=== PATIENT | male | born 1970 | race Caucasian/White ===

== ENCOUNTER 2017-02-27 09:40 | Emergency (ER) | payer OTHER ==
[2017-02-27 12:48] VITALS: BP 138/90
== END 2017-02-27 12:48 | disposition home or self-care (01) ==
LOC: ED 09:40
DX: L02.811 Cutaneous abscess of head [any part, except face] (principal); Z88.0 Allergy status to penicillin
CPT/HCPCS: J2001

== ENCOUNTER 2017-04-05 17:04 | Emergency (ER) | payer OTHER ==
[2017-04-05 20:06] VITALS: BP 145/88
== END 2017-04-05 20:06 | disposition home or self-care (01) ==
LOC: ED 17:04
DX: H66.41 Suppurative otitis media, unspecified, right ear (principal)
CPT/HCPCS: J2001; J3490

== ENCOUNTER 2017-04-08 08:37 | Emergency (ER) | payer OTHER ==
[~2017-04-08] VITALS: Ht 177.8 cm; Wt 144.6 kg
[2017-04-08 08:52] VITALS: BP 142/91
== END 2017-04-08 09:31 | disposition home or self-care (01) ==
LOC: ED 08:37
DX: Z48.01 Encounter for change or removal of surgical wound dressing (principal); Z88.0 Allergy status to penicillin

== ENCOUNTER 2017-07-31 09:32 | Emergency (ER) | payer OTHER ==
[~2017-07-31] VITALS: Ht 177.8 cm; Wt 117.0 kg
[2017-07-31 09:37] VITALS: Ht 177.8 cm; Wt 117.0 kg
[2017-07-31 13:30] VITALS: BP 118/72
== END 2017-07-31 14:00 | disposition home or self-care (01) ==
LOC: ED 09:32
DX: M79.604 Pain in right leg (principal)
CPT/HCPCS: J0690

== ENCOUNTER 2017-07-31 15:10 | Emergency (ER) | payer OTHER ==
[~2017-07-31] VITALS: Ht 177.8 cm; Wt 117.0 kg
[2017-07-31 15:38] VITALS: Ht 177.8 cm; Wt 117.0 kg
[2017-07-31 21:29] VITALS: BP 134/97
== END 2017-07-31 21:30 | disposition home or self-care (01) ==
LOC: ED 15:10
DX: T78.40XA Allergy, unspecified, initial encounter (principal); T36.1X5A Adverse effect of cephalosporins and other beta-lactam antibiotics, initial encounter; Z88.0 Allergy status to penicillin; Y92.9 Unspecified place or not applicable
CPT/HCPCS: J7512; Q0163

== ENCOUNTER 2017-08-05 10:31 | Emergency (ER) | payer OTHER ==
[~2017-08-05] VITALS: Ht 177.8 cm; Wt 117.0 kg
[2017-08-05 10:39] VITALS: Ht 177.8 cm; Wt 117.0 kg
[2017-08-05 12:53] VITALS: BP 138/91
== END 2017-08-05 12:53 | disposition home or self-care (01) ==
LOC: ED 10:31
DX: L02.415 Cutaneous abscess of right lower limb (principal)
CPT/HCPCS: J1885; J2001

== ENCOUNTER 2017-08-07 10:48 | Emergency (ER) | payer OTHER ==
[~2017-08-07] VITALS: Ht 180.3 cm; Wt 107.0 kg
[2017-08-07 11:08] VITALS: BP 133/77; Ht 180.3 cm; Wt 107.0 kg
== END 2017-08-07 12:17 | disposition home or self-care (01) ==
LOC: ED 10:48
DX: L02.416 Cutaneous abscess of left lower limb (principal); Z88.0 Allergy status to penicillin
CPT/HCPCS: J2001

== ENCOUNTER 2018-03-25 14:03 | Emergency (ER) | payer OTHER ==
[~2018-03-25] VITALS: Ht 177.8 cm; Wt 117.0 kg
[2018-03-25 14:18] VITALS: BP 137/102; Ht 177.8 cm; Wt 117.0 kg
== END 2018-03-25 17:47 | disposition home or self-care (01) ==
LOC: ED 14:03
DX: L02.31 Cutaneous abscess of buttock (principal); Z88.0 Allergy status to penicillin; Z88.1 Allergy status to other antibiotic agents
CPT/HCPCS: J2001

== ENCOUNTER 2018-03-27 09:12 | Emergency (ER) | payer OTHER ==
[~2018-03-27] VITALS: Ht 177.8 cm; Wt 117.0 kg
[2018-03-27 09:16] VITALS: Ht 177.8 cm; Wt 117.0 kg
[2018-03-27 10:25] VITALS: BP 160/88
== END 2018-03-27 10:25 | disposition home or self-care (01) ==
LOC: ED 09:12
DX: Z48.01 Encounter for change or removal of surgical wound dressing (principal); Z88.0 Allergy status to penicillin; Z88.1 Allergy status to other antibiotic agents

== ENCOUNTER 2018-08-23 11:01 | Emergency (ER) | payer OTHER ==
[~2018-08-23] VITALS: Ht 177.8 cm; Wt 115.7 kg
[2018-08-23 11:35] VITALS: Ht 177.8 cm; Wt 115.7 kg
[2018-08-23 15:21] VITALS: BP 139/90
== END 2018-08-23 15:21 | disposition home or self-care (01) ==
LOC: ED 11:01
DX: J40 Bronchitis, not specified as acute or chronic (principal); Z88.0 Allergy status to penicillin; Z88.1 Allergy status to other antibiotic agents
CPT/HCPCS: J1885; J7512

== ENCOUNTER 2019-02-27 08:17 | Inpatient (IN) | payer OTHER ==
[~2019-02-27] VITALS: Ht 177.8 cm; Wt 114.0 kg
[2019-02-27 08:26] VITALS: Ht 177.8 cm; Wt 114.0 kg
[2019-02-27 09:25] LABS: PLATELET COUNT 172 x10^3mcL (130-400); RED CELL DISTRIBUTION WIDTH 12.6 % (11.5-14.5)
[2019-02-27 09:40] LABS: BASOPHIL % 0 % (0-2)
--- NOTE | 2019-02-27 09:48 | NUR ---
PT WAS ON BED CO PAIN ON RIGHT FOOT 2ND TO STEPING ON NAIL 3 DAYS AGO. SWELLING AND REDNESS. C/O PAIN 8-05/12. VS STABLE.
[2019-02-27 10:23] LABS: CALCIUM 9.6 mg/dL (8.5-10.1); CARBON DIOXIDE 19.5 mmol/L (21-32); CHLORIDE SERUM 102 mmol/L (98-107); CREATININE SERUM 0.9 mg/dL (0.7-1.3); GFR1 > 60 mL/min; GLUCOSE SERUM 345 mg/dL (74-106); POTASSIUM SERUM 3.9 mmol/L (3.5-5.1); SODIUM SERUM 137 mmol/L (136-145)
[2019-02-27 10:28] LABS: ALBUMIN 3.5 g/dL (3.4-5.0); ALKALINE PHOSPHATASE 67 U/L (46-116); ALT/SGPT 27 U/L (16-63); AST/SGOT 14 U/L (15-37); BILIRUBIN TOTAL 0.94 mg/dL (0.20-1.00); TOTAL PROTEIN, SERUM 7.5 g/dL (6.4-8.2)
--- NOTE | 2019-02-27 10:52 | NUR ---
PT WAS SEEN BY ED MD. ANTIBIOTICS IVPB STARTED PER MD ORDER.
[2019-02-27 11:08] LABS: ERYTHROCYTE SED RATE 68 mm/hr (0-15)
[2019-02-27] MEDS ORDERED: GLIPIZIDE5 M2 PO (11:38)
[2019-02-27] MEDS ORDERED: LIPITOR20 MG PO (11:38)
[2019-02-27] MEDS ORDERED: METFORMIN HCL1000 MG PO (11:39)
[2019-02-27] MEDS ORDERED: ZES10 PO (11:40)
[2019-02-27] MEDS ORDERED: EPZICOM1 TAB (11:40)
--- NOTE | 2019-02-27 11:54 | NUR ---
PT WAS ADMITED TO M/S. ROOM 257A. REPORT WAS CALLED AND GIVEN TO MYLES MONGE.
[2019-02-27 12:51] VITALS: BP 117/69
--- NOTE | 2019-02-27 12:51 | NUR ---
RECEIVED FROM ER VIA FIONA, SEEN AAOX4 WALKING FROM THE BATHROOM. NO RESP DISTRESS NOTED. BREATHING E/U ON ROOM AIR. STATED HAVING PAIN TO RIGHT FOOT SHOOTING PAIN 10/10 ON PAIN SCALE. NOTED RIGHT FOOT SWOLLEN WITH ERYTHEMA, PHOTO TAKEN. LEVAQUIN GIVEN IN ER. VANCOMYCIN ONGOING AT THIS TIME. IV SITE TO LFA INTACT AND FLUSHED WELL. ORIENTING TO ROOM ENVIRONMENT. CALL LIGHT INSTRUCTED AND PLACED WITHIN EASY REACH. SIDERAILS UP X2.
--- NOTE | 2019-02-27 13:07 | NUR ---
STATED HAVING SHOOTING PAIN TO RIGHT FOOT 10/10 ON PAIN SCALE, TORADOL 15MG IVP GIVEN.
--- NOTE | 2019-02-27 14:02 | NUR ---
STATED RIGHT FOOT PAIN IS RELEIF AFTER TORADOL GIVEN. WILL CONTINUE TO MONITOR.
[2019-02-27 16:53] VITALS: BP 133/76
--- NOTE | 2019-02-27 17:40 | NUR ---
NO ANY DISTRESS THROUGHOUT SHIFT. ALL DUE MEDS GIVEN. TORADOL GIVEN X1 FOR RIGHT FOOT PAIN WITH GOOD RELIEF. IV TO LFA FLUSHED PATENT. HAD GOOD APPETITE. BLLV=[id number], RISS 9 UNITS SQ GIVEN. BRP.
--- NOTE | 2019-02-27 20:01 | NUR ---
RECIEVED PT IN NO ACUTE DISTRESS. AOX4. MED SURG. BREATHING E/U ON RA. SWELLING/REDNESS NOTED TO R FOOT, PAYROLL PROCESSOR. C/O R FOOT PAIN 03/12, WILL MEDICATE PER EMAR. SL TO [facility], PATENT. NPO AT MIDNIGHT FOR POSSIBLE PROCEDURE TOMORROW. BED IN LOWEST POSITION, 2 SIDE RAILS UP, CALL LIGHT N REACH. INSTRUCTED TO CALL FOR ASSISTANCE.
[2019-02-27 21:09] VITALS: BP 115/63
--- NOTE | 2019-02-27 21:25 | NUR ---
PT C/O 03/12 R FOOT PAIN AFTER TORADOL. NO OTHER AVAILABLE PAIN MEDICATION. DR. MCMULLEN MADE AWARE.
--- NOTE | 2019-02-27 23:20 | NUR ---
ENDORSED TO AUGUST MONGE FOR CONTINUATION OF CARE.
--- NOTE | 2019-02-28 00:18 | NUR ---
RECEIVED PT FROM EUGENIO MONGE. PT CURRENTLY RESTING IN BED, NO ACUTE DISTRESS. WILL CONTINUE TO MONITOR.
--- NOTE | 2019-02-28 06:00 | NUR ---
PT SLEPT PERIODICALLY THROUGHOUT NIGHT, C/O FOOT PAIN 03/12. MEDICATED PER EMAR. BLOOD GLUCOSE 177, NO COVERAGE PER DR MCMULLEN. ALL NEEDS MET AND ATTENDED TO. NO SIGNIFICANT CHANGES. IV PATENT AND INTACT. BED IN LOWEST POSITION, SIDE RAILS UP X2, CALL LIGHT WITHIN REACH. WILL ENDORSE CARE TO ONCOMING NURSE
[2019-02-28 06:11] VITALS: BP 129/45
[2019-02-28 07:36] LABS: microscopic required? YES; urine erythrocyte TRACE (NEGATIVE)
--- NOTE | 2019-02-28 07:43 | NUR ---
PATIENT A/OX4, ABLE TO MAKE NEEDS KNOWN AND FOLLOW COMMANDS. DENIES HEADAHCE OR CHEST PAIN. LUNGS CTA, NO RESP DISTRESS NOTED ON RA. BREATHING E/U. PERIPHERAL PULSES PALPABLE, RT FOOT NOTED WITH SWELLING/REDNESS, NO DRAINAGE, C/O PAIN 9/10 THROBBING, WILL MEDICATE. BOWEL SOUNDS ACTIVE. DENIES N/V. REPORTS INCREASED PAIN UPON AMBULATING. IV ACCESS TO LFA 20G RUNNING D51/2NS AT 100ML/HR, INFUSING WELL. SITE WNL. CALL LIGHT WITHIN REACH.
[2019-02-28 08:55] VITALS: BP 124/56
--- NOTE | 2019-02-28 08:55 | NUR ---
NORCO GIVEN FOR C/O RT FOOT PAIN 05/12. WILL CONT TO MONITOR.
[2019-02-28 09:15] VITALS: BP 137/73
--- NOTE | 2019-02-28 09:45 | NUR ---
PATIENT SLEEPING AT THIS TIME, BREATHING E/U, NO ACUTE DISTRESS AT THIS TIME. NORCO EFFECTIVE FOR PAIN.
--- NOTE | 2019-02-28 12:25 | NUR ---
PATIENT C/O PAIN COMING BACK TO RT FOOT AND REQUESTING FOR PAIN MED. PER OR, PROCEDURE FOR I&D RESCHEDULED FOR 1400 AND PATIENT MAY BE PICKED UP AT 1330. CARDROOM WORKER CHRIS PAGED AND NOTIFIED OF PAIN WITH NO OTHER DUE PAIN MEDS AVAILABLE TO GIVE AT THIS TIME. TELEPHONE READBACK ORDER RECEIVED FOR MORPHINE 1MG Q4H PRN. GIVEN. WILL CONT TO MONITOR.
--- NOTE | 2019-02-28 14:24 | NUR ---
DR BETANCUR AT BEDSIDE, PER GAS PLANT TECHNICIAN PATIENT WILL HAVE BEDSIDE PROCEDURE INSTEAD. CONSENT OBTAINED FOR ASPIRATION VS INCISION AND DRAINAGE TO RIGHT FOOT. PROCEDURE INITIATED. BEFORE AND AFTER PICTURES OF WOUND TO BE CHARTED.
--- NOTE | 2019-02-28 16:50 | NUR ---
MORPHINE GIVEN FOR C/O PAIN TO RT FOOT. RT FOOT ELEVATED ON PILLOWS. VISITORS AT BEDSIDE.
[2019-02-28 18:01] VITALS: BP 146/85
--- NOTE | 2019-02-28 19:28 | NUR ---
SHIFT REASSESSMENT DONE.PATIENT ALERT AND ORIENTED.BREATHING EASY.GEN WEAKNESSNWB R FOOT.REDNESS/SWELLING DRESSING INTACT.VOIDING PER URINAL.CALL LIGHT IN REACH.
[2019-02-28 20:45] VITALS: BP 119/53
--- NOTE | 2019-02-28 21:00 | NUR ---
R FOOT REDNESS SWELLING WITH DRESSING DRY AND INTACT,ELEVATED/PILLOW,NWB R FOOT.CALL LIGHT IN REACH.
--- NOTE | 2019-02-28 21:13 | NUR ---
PATIENT GIVEN MSO4 1 MG IVP.DENNIS PATENT.
--- NOTE | 2019-03-01 04:51 | NUR ---
SLEEPING COMFORTABLY.CALL LIGHT IN REACH.
[2019-03-01 05:44] VITALS: BP 130/55
--- NOTE | 2019-03-01 05:59 | NUR ---
PATIENT I AND O MEASURED.NO MAJOR CHANGES THIS SHIFT.
[2019-03-01 06:58] LABS: CALCIUM 9.2 mg/dL (8.5-10.1); CHLORIDE SERUM 100 mmol/L (98-107); CREATININE SERUM 0.7 mg/dL (0.7-1.3); GFR1 > 60 mL/min; GLUCOSE SERUM 212 mg/dL (74-106); POTASSIUM SERUM 4.5 mmol/L (3.5-5.1); SODIUM SERUM 136 mmol/L (136-145)
[2019-03-01 07:05] LABS: BASOPHIL % 0.3 % (0-2); PLATELET COUNT 189 x10^3mcL (130-400); RED CELL DISTRIBUTION WIDTH 12.4 % (11.5-14.5)
--- NOTE | 2019-03-01 07:25 | NUR ---
RECIEVED PT RESTING IN BED WITH NO C/O DISTRESS OR SOB. A/O X4 NO ANDREW OR DIZZINESS. LUNGS CTAB. IV NOT INTACT AND HAD TO START NE [place]. OLD IV REMOEVED WITH CATHETER INTACT. NEW IV IN LEFT HAND 22 GUAGE. NO REDNESS OR INFLAMMATION NOTED. SAFETY PRECAUTIONS IN PLACE, CALL LIGHT WITHIN REACH, WILL MONITOR.
[2019-03-01 08:22] VITALS: BP 151/85
[2019-03-01 08:43] LABS: ALKALINE PHOSPHATASE 56 U/L (46-116); ALT/SGPT 19 U/L (16-63); AST/SGOT 9 U/L (15-37); BILIRUBIN TOTAL 0.47 mg/dL (0.20-1.00); CALCIUM 8.9 mg/dL (8.5-10.1); CARBON DIOXIDE 23.9 mmol/L (21-32); CHLORIDE SERUM 99 mmol/L (98-107); CREATININE SERUM 0.8 mg/dL (0.7-1.3); GFR1 > 60 mL/min; GLUCOSE SERUM 221 mg/dL (74-106); SODIUM SERUM 134 mmol/L (136-145); TOTAL PROTEIN, SERUM 6.9 g/dL (6.4-8.2)
[2019-03-01 08:46] LABS: ALBUMIN 2.7 g/dL (3.4-5.0)
--- NOTE | 2019-03-01 10:39 | NUR ---
PT C/O 03/12 RIGHT FOOT PAIN, MEDICATED WITH NORCO PER EMAR, WILL REASSESS.
[2019-03-01] MEDS ORDERED: BACTRIM DS1 TAB PO (12:18)
[2019-03-01] MEDS ORDERED: LEVOFLOXACIN500 M1 PO (12:19)
--- NOTE | 2019-03-01 14:09 | NUR ---
PT C/O 8/10 FOOT PAIN, MEDICATED WITH MORPHINE PER EMAR, WILL REASSESS.
[2019-03-01 16:52] VITALS: BP 135/71
--- NOTE | 2019-03-01 19:13 | NUR ---
I/D FINISHED BY DR ORTIZ AND EATING DISORDER PSYCHOLOGIST. BEFORE AND AFTER PICTURES TAKEN. ONSENT SIGNED BY PT AND IN CHART. PT VERBALIZED UNDERSTAND OF PROCEDURE AND CONCENT.
--- NOTE | 2019-03-01 19:30 | NUR ---
PT STABLE AT THIS TIME WITH NO C/O PAIN, DISTRESS, OR SOB. TOLERATED ALL CARES WELL.IV INTACT AND PATENT WITH NO REDNESS OR INFLAMMATION NOTED. SAFETY PRECAUTIONS IN PLACE, CALL LIGHT WITHIN REACH, WILL ENDORSE CARE TO NIGHT NURSE.
--- NOTE | 2019-03-01 19:46 | NUR ---
ON INITIAL NURSING ROUNDS SAYS HE CALLED 1/2 AN HOUR AGO FOR MSO4,REMINDED I WILL GIVE IT NOW,FIRST THING.
--- NOTE | 2019-03-01 19:49 | NUR ---
SHIFT REASSESSMENT DONE.PATIENT JUST GIVEN PAIN SHOT,AM NURSE SAY HE IS GOING SURGERY IN AM,WILL FOLLOW UP ORDERS.NO CONSENT YET.HEPLOCK INTACT L HAND.FLUSHES EASY.MED SURG PATIENT.CALL LIGHT IN REACH.
--- NOTE | 2019-03-01 21:36 | NUR ---
PAIN MED NORCO GIVEN,HAD NO COMPLETE RELIEF FROM MSO4.CALL LIGHT IN [facility].
[2019-03-01 21:41] VITALS: BP 120/55
--- NOTE | 2019-03-02 01:48 | NUR ---
HAD GIVEN TORADOL EARLIER.QUIET ENVIRONMENT MAINTAINED,USES URINAL,BUT DID HAVE ACCIDENT/WET THE BED.NEW GOWN.
--- NOTE | 2019-03-02 02:31 | NUR ---
NPO AFTER MIDNIGHT.
[2019-03-02 06:13] VITALS: BP 145/62
--- NOTE | 2019-03-02 06:46 | NUR ---
BLANK CONSENT IN FRONT OF CHART,PREOP CHECKLIST INITIATED.
--- NOTE | 2019-03-02 07:00 | NUR ---
RECEIVED PT FROM FACILITY MAINTENANCE SUPERVISOR NURSE. PT RESTING IN BED, AOX4, RESP E/U ON RA. PT DENIES PAIN AT THIS TIME, NO ACUTE DISTRESS NOTED. DRESSING IN PLACE TO R FOOT, CDI. SALINE LOCKED TO L HAND W/ NO ERYTHEMA OR EDEMA, BDE IN LOWEST POSITION AND CALL LIGHT WITHIN REACH. WILL CONTINUE TO MONITOR.
--- NOTE | 2019-03-02 07:18 | NUR ---
[facility] INSTRUCTOR INFORMED ABOUT I&D AND DEBRIDEMENT ORDER FOR THIS PATIENT UNDER WREN GRP, NO TIME NOR DATE GIVEN.PATIENT WAS NPO DURING THE NIGHT.
--- NOTE | 2019-03-02 07:20 | NUR ---
REPORT TO Sveta CARMEN
[2019-03-02 07:45] VITALS: BP 127/72
--- NOTE | 2019-03-02 08:36 | NUR ---
PT BROUGHT DOWN TO OR FOR I&D TO R FOOT AT THIS TIME.
--- NOTE | 2019-03-02 12:15 | NUR ---
PT RESTING IN BED, AOX4 BUT MILDLY DROWSY S/P I&D, RESP E/U ON RA. DENIES PAIN AT THIS TIME. DRESSING TO R FOOT CDI, ELEVATED ON PILLOW. BED IN LOWEST POSITION AND CALL LIGHT WITHIN REACH. WILL CONTIUE TO MONITOR.
[2019-03-02 16:40] VITALS: BP 147/87
--- NOTE | 2019-03-02 17:59 | NUR ---
PT RESTING IN BED, AOX4, RESP E/U ON RA. C/O OF PAIN TO R FOOT RATED 7/10. MEDICATED ORDERED PER EMAR. R FOOT ELEVATED ON PILLOW, DRESSING CDI S/P I&D. SALINE LOCKED TO R HAND W/ NO ERYTHEMA OR EDEMA. BED IN LOWEST POSITION AND CALL LIGHT WITHIN REACH. CONTACT PRECAUTIONS MAINTAINED. WILL ENDORSE TO ONCOMING NURSE.
--- NOTE | 2019-03-02 19:41 | NUR ---
RECEIVED PT FROM PREVIOUS SHIFT. SCAR. ADÁN. S/P 03/01 I&D, RLE WRAPPED IN GAUZE DRESSING, SMALL AMOUNT OF SANGUINEOUS DRAINAGE NOTED, OTHERWISE INTACT. RLE ELEVATED ON PILLOWS, EDUCATED PT ON IMPORTANCE OF KEEPING EXTREMITY ELEVATED. REPORTS 7/10 RLE PAIN, "PRESSURE" LIKE, WILL MEDICATE PER EMAR. PT ABLE TO WIGGLE TOES AND FEEL SENSATION TO RLE. DENIES N/V. DENIES SOB. NO C/O HEADACHE/DIZZINESS. IV SITE TO L HAND CDI, SALINE-LOCKED. CALL LIGHT WITHIN REACH. SAFETY MEASURES IN PLACE. WILL CONTINUE TO MONITOR.
--- NOTE | 2019-03-02 19:41 | NUR ---
MEDICATED PER EMAR WITH NORCO PO, FOR RLE 7/10 PAIN.
[2019-03-02 21:04] VITALS: BP 139/68
--- NOTE | 2019-03-02 21:46 | NUR ---
PT C/O 03/12 ACHING PAIN TO RLE, PT STATES NORCO "ONLY HELPED A LITTLE". MEDICATED PER EMAR.
--- NOTE | 2019-03-03 00:56 | NUR ---
PT AWAKE, WATCHING TV. C/O 01/10 ACHING RLE PAIN, MEDICATED PER EMAR. NO S/S ACUTE DISTRESS. BREATHING E/U. CALL LIGHT WITHIN REACH. SAFETY MEASURES IN PLACE. WILL CONTINUE TO MONITOR.
[2019-03-03 06:05] VITALS: BP 144/76
--- NOTE | 2019-03-03 07:00 | NUR ---
RECEIVED PT FROM SCOOPER NURSE. PT RESTING IN BED, AOX4, RESP E/U ON RA. C/O MILD PAIN TO R FOOT RATED 3/10, TOLERABLE TO PT, NO REQUEST FOR PAIN MEDS AT THIS TIME. COMFORT MEASURES IMPLEMENTED, R FOOT ELEVATED ON PILLOWS, DRESSING CDI S/P I & D. SALINE LOCKED TO L HAND W/ NO ERYTHEMA OR EDEMA. CONTACT PRECAUTIONS IN PLACE. BED IN LOWEST POSITION AND CALL LIGHT WITHIN REACH. WILL CONTINUE TO MONITOR.
[2019-03-03 08:14] LABS: BASOPHIL % 0.3 % (0-2); PLATELET COUNT 249 x10^3mcL (130-400); RED CELL DISTRIBUTION WIDTH 12.1 % (11.5-14.5)
[2019-03-03 08:28] VITALS: BP 140/75
[2019-03-03 08:35] LABS: CALCIUM 9.4 mg/dL (8.5-10.1); CARBON DIOXIDE 27.8 mmol/L (21-32); CHLORIDE SERUM 101 mmol/L (98-107); CREATININE SERUM 0.7 mg/dL (0.7-1.3); GFR1 > 60 mL/min; GLUCOSE SERUM 189 mg/dL (74-106); POTASSIUM SERUM 3.8 mmol/L (3.5-5.1); SODIUM SERUM 137 mmol/L (136-145)
--- NOTE | 2019-03-03 12:40 | NUR ---
PT IN BED HAVING LUNCH, AOX4, RESP E/U ON RA. DENIES PAIN TO R FOOT AT THIS TIME, DRESSING CDI, R FOOT ELEVATED ON PILLOW. BED IN LOWEST POSITION AND CALL LIGHT WITHIN REACH. WILL CONTINUE TO MONITOR.
[2019-03-03 14:46] VITALS: BP 140/75
[2019-03-03 16:25] VITALS: BP 141/75
--- NOTE | 2019-03-03 18:34 | NUR ---
PT DISCHARGED. REVIEWED PT VISIT SUMMARY, EDUCATIONAL PACKET AND FOLLOW UP INSTRUCTIONS W/ PT. PT AOX4, RESP E/U, VS STABLE, PAIN TO R FOOT TOLERABLE AT THIS TIME, DRESSING CDI. IV TO L HAND REMOVED, CATH INTACT, GAUZE DRESSING APPLIED. PT BROUGHT TO LOBBY VIA WHEELCHAIR W/ NO ACUTE INCIDENCE, ESCORTED BY SISTER AND SALEEM CARMEN.
== END 2019-03-03 18:33 | disposition home or self-care (01) | DRG 580 ==
LOC: ED 08:17 → MU 11:28
PROVIDERS: Emergency Medicine; Internal Medicine; Podiatrist Foot & Ankle Surgery; ADMIT General Practice
PROC: 0Y9M3ZZ Drainage of Right Foot, Percutaneous Approach (ICD-10-PCS; principal; 2019-02-28)
PROC: 0JDQ0ZZ Extraction of Right Foot Subcutaneous Tissue and Fascia, Open Approach (ICD-10-PCS; 2019-03-02)
PROC: 0Y9M0ZZ Drainage of Right Foot, Open Approach (ICD-10-PCS; 2019-03-02)
DX: S91.331A Puncture wound without foreign body, right foot, initial encounter (principal); L03.115 Cellulitis of right lower limb; L02.611 Cutaneous abscess of right foot; E11.65 Type 2 diabetes mellitus with hyperglycemia; L08.9 Local infection of the skin and subcutaneous tissue, unspecified; I10 Essential (primary) hypertension; E78.5 Hyperlipidemia, unspecified; E66.9 Obesity, unspecified; W45.0XXA Nail entering through skin, initial encounter; Z68.38 Body mass index [BMI] 38.0-38.9, adult; Z87.891 Personal history of nicotine dependence; Z79.84 Long term (current) use of oral hypoglycemic drugs; Y93.89 Activity, other specified; Y92.89 Other specified places as the place of occurrence of the external cause; Z88.0 Allergy status to penicillin; Z88.8 Allergy status to other drugs, medicaments and biological substances; Z87.01 Personal history of pneumonia (recurrent)
CPT/HCPCS: 82962; G0378; J1170; J1815; J1885; J1956; J2270; J2405; J2704; J3010; J3370; J3490; J7030; Q0092

== ENCOUNTER 2019-03-09 21:22 | Emergency (ER) | payer OTHER ==
[~2019-03-09] VITALS: Ht 177.8 cm; Wt 119.3 kg
[~2019-03-09 21:22] MED LIST: BACTRIM DS1 TAB PO; EPZICOM1 TAB; GLIPIZIDE5 M2 PO; LEVOFLOXACIN500 M1 PO; LIPITOR20 MG PO; METFORMIN HCL1000 MG PO; ZES10 PO
[2019-03-09 21:40] VITALS: Ht 177.8 cm; Wt 119.3 kg
[2019-03-10 00:35] LABS: BASOPHIL % 0.1 % (0-2); PLATELET COUNT 369 x10^3mcL (130-400); RED CELL DISTRIBUTION WIDTH 12.6 % (11.5-14.5)
[2019-03-10 00:45] LABS: CALCIUM 9.9 mg/dL (8.5-10.1); CARBON DIOXIDE 23.3 mmol/L (21-32); CHLORIDE SERUM 92 mmol/L (98-107); GFR1 > 60 mL/min; GLUCOSE SERUM 322 mg/dL (74-106); POTASSIUM SERUM 5.2 mmol/L (3.5-5.1); SODIUM SERUM 131 mmol/L (136-145)
[2019-03-10 00:51] LABS: ALBUMIN 3.5 g/dL (3.4-5.0); ALKALINE PHOSPHATASE 68 U/L (46-116); ALT/SGPT 26 U/L (16-63); AST/SGOT 14 U/L (15-37); BILIRUBIN TOTAL 0.4 mg/dL (0.20-1.00); LIPASE 89 IU/L (73-393); TOTAL PROTEIN, SERUM 8.2 g/dL (6.4-8.2)
[2019-03-10 02:54] VITALS: BP 132/78
[2019-03-11] MEDS ORDERED: LOT1C TOP (17:44)
== END 2019-03-10 02:54 | disposition home or self-care (01) ==
LOC: ED 21:22
PROVIDERS: Emergency Medicine
DX: R11.2 Nausea with vomiting, unspecified (principal); E11.9 Type 2 diabetes mellitus without complications; R53.1 Weakness; Z88.0 Allergy status to penicillin; Z88.1 Allergy status to other antibiotic agents; Z98.890 Other specified postprocedural states
CPT/HCPCS: 82962; J2405; J7030

== ENCOUNTER 2019-03-11 14:13 | Inpatient (IN) | payer OTHER ==
[~2019-03-11] VITALS: Ht 172.7 cm; Wt 107.1 kg
[2019-03-11 14:27] VITALS: Ht 172.7 cm; Wt 107.1 kg
--- NOTE | 2019-03-11 14:40 | NUR ---
PER PT HE HAD SURGERY HERE AT [facility] LAST WEEK. PT STS THAT HE CAME A FEW DAYS AGO FOR "EXTREME NAUSEA". PT STS THAT HE IS NOW HAVING INCREASE IN NAUSEA WITH VOMITING. PT STS THAT HE CANT EAT OR DRINK ANYTHING BECAUASE OF THE NAUSEA. +PEDAL PULSES TANI LOWER EXTREMITIES. PT STS THAT HE HAS "SHARP PAIN TO PINKY TOE". PT DENIES TEMP, BODY ACHE AND CHILLS. PT STS THAT HE HAS A "SLIGHT" HEAD ACHE FOR ONE DAY. DR. GALAVIZ AT BEDSIDE FOR MSE. PT PLACED ON FULL CM. VSS. RESP E/U. WILL CONTINUE TO MONITOR. BG 333. PT STS HE TAKED METFORMIN.
[2019-03-11 15:32] LABS: BASOPHIL % 0.4 % (0-2); PLATELET COUNT 382 x10^3mcL (130-400); RED CELL DISTRIBUTION WIDTH 12.7 % (11.5-14.5)
[2019-03-11 15:44] LABS: CALCIUM 9.7 mg/dL (8.5-10.1); CARBON DIOXIDE 17.7 mmol/L (21-32); CHLORIDE SERUM 94 mmol/L (98-107); CREATININE SERUM 0.9 mg/dL (0.7-1.3); GFR1 > 60 mL/min; GLUCOSE SERUM 300 mg/dL (74-106); POTASSIUM SERUM 4.6 mmol/L (3.5-5.1); SODIUM SERUM 129 mmol/L (136-145)
[2019-03-11 15:51] LABS: ALBUMIN 3.7 g/dL (3.4-5.0); ALKALINE PHOSPHATASE 66 U/L (46-116); ALT/SGPT 45 U/L (16-63); AST/SGOT 33 U/L (15-37); BILIRUBIN TOTAL 0.6 mg/dL (0.20-1.00)
--- NOTE | 2019-03-11 15:55 | NUR ---
PHARMACY CALLED FOR MEDICATION.
--- NOTE | 2019-03-11 16:39 | NUR ---
RECEIVED PT FROM Blas SAMSON RN ENDORSED CARE. PT ARRIVED ON A GURNEY ESCORTED BY RN. VS: 97.7, 92, 18, 131/82, 98% ON R/A. PT IS AAOX4. RESP EVEN AND UNLABORED. LUNG SOUNDS CTA. ON R/A. NORMAL S1S2 NOTED. ABDOMEN SOFT, NONTENDER, NONDISTENDED. BOWEL SOUNDS ACTIVE X4 QUADS. DENIES N/V/D. PT HAS RED RASH ON BUTTOCKS, BLE, AND PERINEAL AREA, [employer] OFFICER. PT HAS SURGICAL INCISION TO R DORSAL FOOT WITH NONPITTING EDEMA, [employer] OFFICER AT THIS TIME. PODIATRY HAS BEEN CONSULTED FOR WOUND CARE ORDER. PT DENIES PAIN AT THIS TIME. CALL LIGHT WITHIN REACH. BED IN LOW POSITION. WILL CONTINUE TO MONITOR.
[2019-03-11 16:50] VITALS: BP 131/82
--- NOTE | 2019-03-11 16:53 | NUR ---
RECEIVED PT FROM ED VIA ARI. ORIENTED PT TO ROOM AND SURROUNDINGS. IV NOTED TO RAC PATENT AND INTACT. INSTRUCTED PT ON THE USE OF CALL LIGHT FOR ASSISTANCE. ENDORSED PT TO PRIMARY NURSE HUMBLE
[2019-03-11] MEDS ORDERED: LOT1C TOP (17:44)
--- NOTE | 2019-03-11 18:31 | NUR ---
PODIATRY IN ROOM APPLYING DRESSING TO R FOOT AT THIS TIME. RESP EVEN AND UNLABORED. NO DISTRESS NOTED. IVF RUNNING TO [facility], SITE WNL. NO S/S OF INFECTION OR INFILTRATION. PT DENIES PAIN AT THIS TIME. WILL ENDORSE ALL CARE TO NOC RN.
[2019-03-11 19:16] VITALS: BP 129/74
--- NOTE | 2019-03-11 19:30 | NUR ---
RECEIVED REPORT FROM AM NURSE. PT LAYING DOWN IN BED. PT AAOX4, FOLLOW COMMANDS. ABLE TO MAKE NEEDS KNOWN. MED-SURG. DENIES CP/PRESSURE AT THIS TIME. NO ACUTE DISTRES NOTED. PALPABLE PULSES TO ALL EXTREMETIES. SWELLING TO RIGHT FOOT NOTED. LUNG SOUNDS CTA ON RA. ABD SOFT AND NONDISTENDED, ACTIVE BS X4 QUAD. DENIES N/V/D. LAST BM 03/11/19. VOIDS FREELY BRP. WEAKNESS TO RIGHT FOOT ONLY. RASH TO BUTTOCKS, BLE, ABD, AND MARICRUZ ARE ELECTRICAL ASSISTANT. SX INCISION WITH OPEN WOUND TO RIGHT FOOT COVERED WITH DRESSING. DRESSING CDI. NS RUNNING TO RAC AT 50ML/HR. SITE FREE FROM REDNESS AND SWELLING. BED AT LOWEST SETTING. SIDE RAILS X2 UP. CALL LIGHT WITHING REACH. WILL CONTINUE TO MONITOR.
--- NOTE | 2019-03-11 21:20 | NUR ---
PT C/O 9 PAIN TO RIGHT FOOT. MEDICATED WITH PRN IV MORPHINE PER OCT. REASSESSED PAIN AFTER 30 MIN. PT STATES PAIN GETTING BETTER. WILL CONTINUE TO MONITOR.
--- NOTE | 2019-03-12 02:05 | NUR ---
PT LAYING DOWN IN BED WITH EYES CLOSED. BREATHING EVEN AND UNLABORED ON RA. NO ACUTE DISTRESS NOTED. WILL CONTINUE TO MONITOR.
[2019-03-12 04:19] VITALS: BP 121/72
--- NOTE | 2019-03-12 05:32 | NUR ---
PT SLEPT WELL THROGHOUT THE NIGHT. BREATHING EVEN AND UNLABORED ON RA. NO ACUTE DISTRESS NOTED. NS RUNNING TO RAC AT 50ML/HR. SITE FREE FROM RENDESS AND SWELLING. DRESSING TO RIGHT FOOT CDI. ALL NEEDS ASSESSED AND ATTENDED TO. BED AT LOWEST SETTING. SIDE RAILS X2 UP. CALL LIGHT WITHING REACH. WILL ENDORSE CARE TO AM NURSE.
[2019-03-12 06:45] LABS: BASOPHIL % 0.4 % (0-2); PLATELET COUNT 384 x10^3mcL (130-400); RED CELL DISTRIBUTION WIDTH 12.6 % (11.5-14.5)
[2019-03-12 07:05] LABS: CARBON DIOXIDE 23.7 mmol/L (21-32); CHLORIDE SERUM 97 mmol/L (98-107); GFR1 > 60 mL/min; GLUCOSE SERUM 233 mg/dL (74-106); POTASSIUM SERUM 4.6 mmol/L (3.5-5.1); SODIUM SERUM 134 mmol/L (136-145)
--- NOTE | 2019-03-12 07:40 | NUR ---
RECEIVED PT FROM ELECTRONIC SENSING EQUIPMENT ASSEMBLER RN. A/O4. MED SURG. DENIES CHEST PAIN/PRESSURE. RESPIRATIONS EQUAL AND UNLABORED ON RA. DENIES SOB. PT STATES DR. LARA WAS AT BEDSIDE AND DID TODAY'S DRESSING CHANGE TO RIGHT FOOT. DRESSING CDI, NO DRAINAGE NOTED. PT DENIES ANY PAIN SINCE RECEIVING PAIN MEDICATION THIS AM. NOTED RASH TO BUTTOCKS, ABD, BLE AND PERIAREA, RUBBER CUTTER. EMPTIED 390 ML OF ZEE YELLOW URINE FROM URINAL. IV PATENT AND INFUSING TO RAC. NO REDNESS OR SWELLING NOTED. WILL CONTINUE TO MONITOR. CALL LIGHT IN REACH. BED IN LOWEST POSITION.
[2019-03-12 09:26] VITALS: BP 121/72
--- NOTE | 2019-03-12 09:47 | NUR ---
PT IN BED RESTING. NO ACUTE RESP DISTRESS NOTED ON RA. PT STATES PAIN TO RIGHT FOOT IS TOLERABLE SINCE RECEIVING PAIN MEDICATION THIS MORNING. GIVEN PO MEDS. TOLERATED WELL. APPLIED TOPICAL LOTRIMIN TO LEFT MEDIAL LEG AND ABDOMEN. EMPTIED 290 ML OF ZEE YELLOW URINE FROM URINAL. WILL CONTINUE TO MONITOR. CALL LIGHT IN REACH. BED IN LOWEST POSITION.
--- NOTE | 2019-03-12 14:06 | NUR ---
PT IN BED RESTING. PT C/O PAIN 03/12 TO RLE THROBBING, SHARP AND PRESSURE. PT STATES "THE PAIN IS MOSTLY PRESSURE BUT SOMETIMES IT WILL STOP THROBBING AND FEEL SHARP. PT STATES MORPHINE HELPS WITH PAIN. MEDICATED PER EMAR. IV PATENT AND INFUSING TO RAC. NO REDNESS OR SWELLING NOTED. IV ANTIBIOTICS INFUSING ORDERED. WILL CONTINUE TO MONITOR. CALL LIGHT IN REACH. BED IN LOWEST POSITION.
--- NOTE | 2019-03-12 15:15 | NUR ---
PT IN BED RESTING. NO ACUTE RESP DISTRESS NOTED ON RA. PT C/O PAIN / TO RLE THROBBING AND PRESSURE. PT STATES "THE MORPHINE HELPED A LITTLE BUT THE PAIN IS INCREASING. MEDICATED PER EMAR. IV PATENT AND INFUSING TO RAC. NO REDNESS OR SWELLING NOTED. PT DENIES ANY N/V. EMPTIED 390 ML OF YELLOW URINE FROM URINAL. WILL CONTINUE TO MONITOR. CALL LIGHT IN REACH. BED IN LOWEST POSITION.
--- NOTE | 2019-03-12 17:06 | NUR ---
PT IN BED RESTING. NO ACUTE RESP DISTRESS NOTED ON RA. DENIES SOB. PT STATES PAIN TO RLE IS TOLERABLE AT THIS TIME 11/10. BLOOD SUGAR CHECKED WAS 230. GIVEN 6 UNITS OF REGULAR INSULIN PER SLIDING SCALE. PT STATES HE HAD A SMALL BM. EMPTIED 230 ML CLEAR YELLOW URINE FROM URINAL. DRESSING TO RLE, CDI. WILL CONTINUE TO MONITOR. CALL LIGHT IN REACH. BED IN LOWEST POSITION.
[2019-03-12 17:54] VITALS: BP 112/65
[2019-03-12 20:01] VITALS: BP 120/59
--- NOTE | 2019-03-12 20:05 | NUR ---
PATIENT RECEIVED IN BED AA/OX4, PATIENT IN NO DISTRESS. COMPLAINED OF [place] RT FOOT PAIN, INFORMED ABOUT PAIN MANAGEMENT, RLE ELEVATED ON A PILLOW, TRACE SWELLING NOTED, DENIED N/T SENSATION, ABLE TO WIGGLE TOES, DRESSING CDI SAYRA WRAPPED. IV SITE NO SIGN OF INFILTRATION, TAPE SECURED. PATIENT INFORMED ABOU POC THIS SHIFT.SAFETY PRECAUTIONS MAINTAINED. WILL CONTINUE TO MONITOR.
--- NOTE | 2019-03-12 21:26 | NUR ---
SCHEDULED MEDS ADMINISTERED, PATIENT INFORMED ABOUT EACH MEDS ACTIONS AND PURPOSES PRIOR. PATIENT ALSO MEDICATED FOR COMPLAINT OF RT FOOT PAIN, AMDE COMFORTABLE AND WILL CHECK EFFECTIVENESS.
--- NOTE | 2019-03-12 22:20 | NUR ---
PAIN RELIEF, RATED AT 2/10 SLOWLYS SUBSIDING, PATIENT COMFORTABLE.
--- NOTE | 2019-03-13 00:02 | NUR ---
ROUNDS MADE PATIENT SLEEPING AND RESTING QUIETLY THIS TIME, NO DISTRESS. SAFETY MAINTAINED .WILL CONTINUE TO MONITOR.
[2019-03-13 05:29] VITALS: BP 114/67
--- NOTE | 2019-03-13 06:28 | NUR ---
PATIENT HAD A RESTFUL AND QUIET NIGHT,WAS MEDICATED X2 WITH MORPHINE SULFATE AND RECEIVED DESIRED RELIEF. IV SITE NO SIGN OF INFILTRATION. NO COMPLAINT OF N/V. SAFETY PRECAUTIONS MAINTAINED. WILL ENDORSE CONTINUITY OF CARE TO INCOMING NURSE.
[2019-03-13 06:30] LABS: CALCIUM 9.6 mg/dL (8.5-10.1); CARBON DIOXIDE 26.3 mmol/L (21-32); CHLORIDE SERUM 99 mmol/L (98-107); CREATININE SERUM 0.8 mg/dL (0.7-1.3); GFR1 > 60 mL/min; GLUCOSE SERUM 216 mg/dL (74-106); POTASSIUM SERUM 5.2 mmol/L (3.5-5.1); SODIUM SERUM 135 mmol/L (136-145)
[2019-03-13 07:03] LABS: BASOPHIL % 0.4 % (0-2); RED CELL DISTRIBUTION WIDTH 12.9 % (11.5-14.5)
[2019-03-13 07:05] LABS: PLATELET COUNT 427 x10^3mcL (130-400)
--- NOTE | 2019-03-13 07:10 | NUR ---
RECEIVED PT FROM SITE ADMINISTRATOR RN. Jeanne/YUNG. MED SURG. DENIES CHEST PAIN/PRESSURE. RESPIRATIONS EQUAL AND UNLABORED ON RA. DENIES ANY SOB. PT STATES PAIN TO RLE FEELS LIKE PRESSURE TO FOOT, PT STATES THE PAIN IS TOLERABLE AT THIS TIME. PT ABLE TO MOVE TOES, DENIES ANY NUMBNESS. DRESSING TO RLE, CDI. IV PATENT AND INFUSING TO RAC. NO REDNESS OR SWELLING NOTED. WILL CONTINUE TO MONITOR. CALL LIGHT IN REACH. BED IN LOWEST POSITION.
--- NOTE | 2019-03-13 07:25 | NUR ---
BEDSIDE REPORT AND INTRODUCTION PERFORMED WITH INCOMING [id number].
[2019-03-13 07:59] VITALS: BP 114/55
--- NOTE | 2019-03-13 08:24 | NUR ---
[employer] HEAT WELDER PLASTICS AT BEDSIDE. PT IS OKAY TO D/C HOME. PT IS TO FOLLOW UP WITH PODIATRY TOMORROW AND FOLLOW UP WITH PCP. PT VERBALIZED UNDERSTANDING. ALL QUESTIONS AND CONCERNS ADDRESSED.
--- NOTE | 2019-03-13 08:55 | NUR ---
PT IN BED RESTING. NO ACUTE RESP DISTRESS NOTED ON RA. PT STATES PAIN TO RLE IS TOLERABLE AT THIS TIME. PT STATES I STILL JUST FEELS SOME PRESSURE TO THE FOOT. GIVEN PO MEDS. TOLERATED WELL. APPLIED LOTRIMIN CREAM TO BLE, ABDOMEN, BUTTTOCKS. WILL CONTINUE TO MONITOR. CALL LIGHT IN REACH. BED IN LOWEST POSITION.
[2019-03-13 09:00] VITALS: BP 114/55
--- NOTE | 2019-03-13 11:56 | NUR ---
PT IN BED RESTING. NO ACUTE RESP DISTRESS NOTED ON RA. DRESSING TO RLE,CDI NO DRAINAGE NOTED AT THIS TIME. BLOOD SUGAR CHECKED WAS 292. GIVEN 9 UNITS OF REGULAR INSULIN PER SLIDING SCALE. PT STATES "MY SISTER WONT BE ABLE TO PICK ME UP UNTIL 2PM" IV PATENT AND INFUSING. NO REDNESS OR SWELLING NOTED. WILL CONTINUE TO MONITOR. CALL LIGHT IN REACH. BED IN LOWEST POSITION.
--- NOTE | 2019-03-13 14:06 | NUR ---
PT SITTING UP AT BEDSIDE. DISCHARGE INSTRUCTIONS GIVEN. PT RECOMMENDED TO CONTINUE ACTIVITY TOLERATED AND NOT TO PUT TOO MUCH STRAIN OF RLE. PT REMINDED TO FOLLOW UP WITH HORTICULTURALIST OUTPATIENT AND PCP. PT STATES"I HAVE AN APPOINTMENT WITH MY HORTICULTURALIST AND PCP TOMORROW" PT ENCOURAGED TO CONTINUE HOME MEDICATIONS PRESCRIBED. PT VERBALIZED UNDERSTANDING. PHOTOGRAPHS TAKEN OF WOUNDS. PT ENCOURAGED TO MONITOR BLOOD GLUCOSE AT HOME AND FOLLOW A CCHO. PT VERBALIZED UNDERSTANDING. PT GIVEN DISCHARGE INSTRUCTIONS WITH LABS AND DIAGNOSTIC TEST. PT STATES "I WILL TAKE THIS WITH MY TO MY PCP" PT ENCOURAGED TO RETURN TO ER IF ANY WORSENING SYMPTOMS OF N/V, PAIN, FEVER, SOB. IV TO RAC REMOVED CATHETER INTACT. NO REDNESS OR SWELLING NOTED. ALL QUESTIONS AND CONCERNS ADDRESSED. NO PROBLEMS ENCOUNTERED. PT TAKEN OFF FLOOR VIA WHEELCHAIR BY TIFF.
== END 2019-03-13 14:15 | disposition home or self-care (01) | DRG 639 ==
LOC: ED 14:13 → MU 15:13
PROVIDERS: Emergency Medicine; ADMIT Internal Medicine
DX: E11.621 Type 2 diabetes mellitus with foot ulcer (principal); I10 Essential (primary) hypertension; E78.00 Pure hypercholesterolemia, unspecified; L97.519 Non-pressure chronic ulcer of other part of right foot with unspecified severity; Z88.0 Allergy status to penicillin; Z88.1 Allergy status to other antibiotic agents; Z79.899 Other long term (current) drug therapy
CPT/HCPCS: 82962; G0378; J1815; J2270; J2405; J3010; J3370; J3490; J7030; Q0092

== ENCOUNTER 2019-07-07 12:27 | Emergency (ER) | payer OTHER ==
[~2019-07-07] VITALS: Ht 180.3 cm; Wt 124.3 kg
[~2019-07-07 12:27] MED LIST changes: +LOT1C TOP
[2019-07-07 12:48] VITALS: Ht 180.3 cm; Wt 124.3 kg
[2019-07-07 14:12] LABS: microscopic required? NO
[2019-07-07 14:27] LABS: CALCIUM 8.6 mg/dL (8.5-10.1); CARBON DIOXIDE 26.1 mmol/L (21-32); CHLORIDE SERUM 104 mmol/L (98-107); CREATININE SERUM 1.1 mg/dL (0.7-1.3); GFR1 > 60 mL/min; GLUCOSE SERUM 202 mg/dL (74-106); POTASSIUM SERUM 4.2 mmol/L (3.5-5.1); SODIUM SERUM 141 mmol/L (136-145)
[2019-07-07 14:29] LABS: UA SPECIFIC GRAVITY <=1.005 (1.005-1.035); urine erythrocyte NEGATIVE (NEGATIVE)
[2019-07-07 14:32] LABS: ALBUMIN 3.8 g/dL (3.4-5.0); ALKALINE PHOSPHATASE 68 U/L (46-116); ALT/SGPT 28 U/L (16-63); AST/SGOT 15 U/L (15-37); BILIRUBIN TOTAL 0.6 mg/dL (0.20-1.00); TOTAL PROTEIN, SERUM 7.3 g/dL (6.4-8.2)
[2019-07-07 14:45] LABS: BASOPHIL % 0.7 % (0-2); PLATELET COUNT 179 x10^3mcL (130-400); RED CELL DISTRIBUTION WIDTH 14.2 % (11.5-14.5)
[2019-07-07 16:50] VITALS: BP 135/78
== END 2019-07-07 16:50 | disposition home or self-care (01) ==
LOC: ED 12:27
PROVIDERS: Emergency Medicine
DX: L02.612 Cutaneous abscess of left foot (principal); E11.9 Type 2 diabetes mellitus without complications; I10 Essential (primary) hypertension; E78.00 Pure hypercholesterolemia, unspecified; Z90.89 Acquired absence of other organs; Z98.890 Other specified postprocedural states; Z88.0 Allergy status to penicillin; Z88.1 Allergy status to other antibiotic agents
CPT/HCPCS: 36415; J2001